=== PATIENT | female | born 1950 | race Caucasian/White ===

== ENCOUNTER → 2017-02-25 | Outpatient (CLI) | payer MEDICARE, OTHER ==
[2014-09-11 11:35] VITALS: BP 114/56
[~2017-02-25] MED LIST: CETI10TA22 PO; CHOL100013 PO; IBAN150T PO; LEVO75TA PO
--- NOTE | 2017-02-25 10:27 | RAD ---
Exam performed: Bone densitometry. Clinical Indication: Screening, ovarian failure Date of Service:02/25/17 .Comparison:04/13/12] Discussion: Bone Densitometry was performed with dual photon absorption of the lumbar spine and proximal femur. Lumbar Spine: Bone density is 0.997 g/cm2 for L2-L4. T-Score is -1.7 Right Femur: Bone density is 0.848 g/cm2. T-Score is -1.3 Impression: Mild osteopenia involving the lumbar spine with 4.7% increase since previous study. Bilateral screening involving the right hip with 18.4% increase since previous study
== END | disposition home or self-care (01) ==
LOC: DXRAD 09:32
PROVIDERS: ATTEND Family Medicine
DX: M85.80 Other specified disorders of bone density and structure, unspecified site (principal); E28.39 Other primary ovarian failure
CPT/HCPCS: 77080

== ENCOUNTER → 2019-02-16 | Outpatient (CLI) | payer MEDICARE, OTHER ==
[2014-09-11 11:35] VITALS: BP 114/56
[~2019-02-16] MED LIST changes: -IBAN150T PO; +IBAN150T15 PO
--- NOTE | 2019-02-16 12:42 | RAD ---
EXAM: Dual energy x-ray absorptiometry (DEXA). HISTORY: Postmenopausal female presents for osteoporosis screening. COMPARISON: 02/25/2017 and 02/25/2005. TECHNIQUE: Dual energy x-ray absorptiometry of the lumbar spine and right hip was performed. Calculation of bone mineral density based on standard deviations above or below the expected young adult normal value (T-score) was completed. FINDINGS: The average bone mineral density in the 1st through 4th lumbar vertebrae is 1.005 g/cmxcm, corresponding with a T-score of -1.5. There has been a 6.9% increase in density of the lumbar spine compared to the baseline exam dated 02/25/2005. The average total bone mineral density in the right hip is 0.787 g/cmxcm, corresponding with a T-score of -1.4. There has been a 16.6% increase in density of the right hip compared to a baseline exam dated 02/25/2005. IMPRESSION: Osteopenia measured at the lumbar spine and right hip. There has been interval increase in bone mineral density of the lumbar spine and right hip compared to the baseline exam dated 02/25/2005. Note: Definitions established by the [employer] Organization: 1. Normal: T-score is -1.0 or above. 2. Osteopenia: T-score is between -1.0 and -2.5 . 3. Osteoporosis: T-score is -2.5 or below. Electronically signed by: Hyun Burris MD (02/16/2019 12:39 PM) [email or web address]
== END | disposition home or self-care (01) ==
LOC: DXRAD 12:50
PROVIDERS: ATTEND Family Medicine
DX: Z13.820 Encounter for screening for osteoporosis (principal); M85.88 Other specified disorders of bone density and structure, other site; N95.9 Unspecified menopausal and perimenopausal disorder
CPT/HCPCS: 77080

== ENCOUNTER → 2020-07-13 | Outpatient (CLI) | payer MEDICARE, OTHER ==
[2014-09-11 11:35] VITALS: BP 114/56
[~2020-07-13] MED LIST changes: -CETI10TA22 PO; +CETI10TA74 PO
== END | disposition home or self-care (01) ==
LOC: LAB 08:01
PROVIDERS: ATTEND Nurse Anesthetist, Certified Registered
DX: Z20.828 Contact with and (suspected) exposure to other viral communicable diseases (principal)
CPT/HCPCS: U0003-CS

== ENCOUNTER → 2020-07-17 | Day surgery (SDC) | payer MEDICARE, OTHER ==
[~2020-07-17] MED LIST changes: +IPRATRPIUM/ALBUTEROL 0.5/2.5MG 3 ML NEBU. NEB PRN; +IV RINGERS SOLUTION,LACTATED 1,000 ML IV SCH; +MIDAZOLAM HCL PF 2 MG/2 ML VIAL. IV ONE; +ONDANSETRON PF 4 MG/2 ML VIAL. IV PRN
[2020-07-17 10:21] VITALS: BP 110/66
== END | disposition home or self-care (01) ==
LOC: SURG 08:04
PROVIDERS: ATTEND Emergency Medicine
DX: Z12.11 Encounter for screening for malignant neoplasm of colon (principal); K57.30 Diverticulosis of large intestine without perforation or abscess without bleeding; M19.90 Unspecified osteoarthritis, unspecified site; J30.2 Other seasonal allergic rhinitis; E03.9 Hypothyroidism, unspecified; Z79.899 Other long term (current) drug therapy; Z91.011 Allergy to milk products; Z88.1 Allergy status to other antibiotic agents; Z86.010 Personal history of colon polyps; Z98.890 Other specified postprocedural states
CPT/HCPCS: G0105; J2704; J7120

== ENCOUNTER → 2020-11-27 | Outpatient (CLI) | payer MEDICARE, OTHER ==
[2020-07-17 10:21] VITALS: BP 110/66
[~2020-11-27] MED LIST changes: -IPRATRPIUM/ALBUTEROL 0.5/2.5MG 3 ML NEBU. NEB PRN; -IV RINGERS SOLUTION,LACTATED 1,000 ML IV SCH; -MIDAZOLAM HCL PF 2 MG/2 ML VIAL. IV ONE; -ONDANSETRON PF 4 MG/2 ML VIAL. IV PRN
--- NOTE | 2020-11-27 17:02 | RAD ---
Study: XR LUMBAR SPINE 2-3V Indication: Low back pain. Comparison: None. Findings: 5 nonrib-bearing lumbar vertebral elements. Grade 1 anterolisthesis of L5 on S1 by approximately 7 mm. Facet arthrosis at that this level without apparent pars defects. Mild L5-S1 disc space narrowing. No significant discogenic arthrosis elsewher e and only mild facet arthrosis at L4-L5. No concerning vertebral body height loss. Impression: Approximately 7 mm of anterolisthesis of L5 on S1 in the setting of L5-S1 facet arthrosis. Mild disc space narrowing at this level. No pars defects are apparent by radiography to explain this listhesis. No severe spondylosis above L5-S1. Electronically signed by: MEL WEST MD (11/27/2020 4:59 PM) [id number]
== END ==
LOC: RAD 14:17
PROVIDERS: ATTEND Family Medicine
DX: M47.817 Spondylosis without myelopathy or radiculopathy, lumbosacral region (principal); M48.07 Spinal stenosis, lumbosacral region
CPT/HCPCS: 72100